=== PATIENT | female | born 1960 | race Caucasian/White ===

== ENCOUNTER 2020-05-01 09:31 | Outpatient (CLI) | payer BC, SELFPAY ==
--- NOTE | 2020-05-01 09:38 | MM_ITS ---
WS: [id number] Exam: [id number] Date/Time of Exam: 05/01/2020 9:51 AM Reason For Exam: SCREENING VIEWS: MLO and CC views both breasts. Comparison made with prior exam of 02/18/2017. Findings: There was no sign of mass, architectural distortion or suspicious calcification in either breast. Sca ttered fibroglandular densities noted bilaterally. Stable appearing scattered microcalcifications in the right breast. MM/[place] [id number] Impression: BI-RADS: 2-Benign FOLLOW-UP: 1 Year Follow-up This mammogram was also analyzed by the Computer Aided Detection System R2 Imag e Ecologist Technician.
== END 2020-05-01 09:32 | disposition home or self-care (01) ==
LOC: RADSHAW 09:35
PROVIDERS: PCP Family Medicine; Visit Provider Family Medicine
DX: Z12.31 Encounter for screening mammogram for malignant neoplasm of breast (principal)
CPT/HCPCS: 77067

== ENCOUNTER 2021-05-08 09:46 | Outpatient (CLI) | payer BC, SELFPAY ==
--- NOTE | 2021-05-08 09:49 | MM_ITS ---
WS: [id number] Bilateral screening digital mammogram, 05/08/2021 Clinical Data: SCREENING Comparison: 05/01/2020, 04/25/2019, 03/30/2018, 02/18/2017, 01/29/2016, 12/20/2014, 04/06/2013, 01/14/2011, 12/22/2009, 11/10/2006. Findings: The breast parenchymal pattern shows fibroglandular tissue. No spiculated masses or clustered calcif ications are seen. There are no secondary signs of carcinoma. There are lymph nodes in both axilla. MM/[place] [id number] Impression: 1. Negative bilateral mammogram unchanged. 2. Recommend annual screening mammograms. BIRADS: 1-Negative FOLLOW UP: 1 Year Follow-up The CAD fruit checker was used.
== END 2021-05-08 09:47 | disposition home or self-care (01) ==
LOC: RADSHAW 09:48
PROVIDERS: PCP Family Medicine; Visit Provider Family Medicine
DX: Z12.31 Encounter for screening mammogram for malignant neoplasm of breast (principal)
CPT/HCPCS: 77067

== ENCOUNTER 2022-05-21 14:09 | Outpatient (CLI) | payer BC, SELFPAY ==
--- NOTE | 2022-05-21 14:21 | MM_ITS ---
WS: [id number] BILATERAL SCREENING DIGITAL TOMOSYNTHESIS MAMMOGRAM WITH CAD HISTORY: SCREENING COMPARISON: 05/08/2021, 05/01/2020 Bilateral CC and MLO views with tomosynthesis and synthetic mammography submitted. Computer aided det ection analyzed. Breast composition: There are scattered areas of fibroglandular density. No suspicious masses, microc alcifications or architectural distortion. Benign calcifications in each breast. MM/[place] [id number] IMPRESSION: BI-RADS: 2-Benign FOLLOW UP: 1 Year Follow-up
== END 2022-05-21 14:10 | disposition home or self-care (01) ==
LOC: RAD 14:10
PROVIDERS: PCP Family Medicine; Visit Provider Family Medicine
DX: Z12.31 Encounter for screening mammogram for malignant neoplasm of breast (principal)
CPT/HCPCS: 77063; 77067

== ENCOUNTER 2022-10-08 11:13 | Emergency (ER) | payer BC, OTHER, SELFPAY ==
[2022-10-08 11:15] VITALS: BP 154/74; PULSE 59; RESP 16; TEMP 36.6; O2SAT 99
--- NOTE | 2022-10-08 11:19 | XR_ITS ---
WS: [id number] XR chest 1V portable [id number] REASON FOR EXAM: chest pain FINDINGS: Mild tortuosity and ectasia of the thoracic aorta. Normal heart size. Calcified granulomatous disease bilaterally. No active pulmonary parenchymal pleural disease. Moderate to significant degenerative spondylosis in the mid and lower thoracic spine. XR/XR chest 1V portable [id number] IMPRESSION: No acute chest abnormality.
--- NOTE | 2022-10-08 11:21 | ECG_ITS ---
[facility] Test Date: 2022-10-08 Pat Name: Luis Matamoros Department: Room: Gender: Female Precision Instrument And Tool Maker: : 1960 Requested By: Vin Cruz Order Number: [id number] Jennifer MD: Ciera Kumar M.D. Measurements Intervals Commodore Rate: 62 P: 46 FL: 153 QRS: 24 QRSD: 90 T: 31 QT: 397 QTc: 403 Interpretive Statements SINUS RHYTHM LOW QRS VOLTAGE IN PRECORDIAL LEADS [QRS DEFLECTION < 1.0 mV IN CHEST LEADS] No previous ECG available for comparison Electronically Signed On 10-08-2022 21:24:03 CDT by Ciera Kumar M.D. [id number]
[2022-10-08 11:30] VITALS: BP 120/88; PULSE 68; RESP 20; O2SAT 94
[2022-10-08 11:31] LABS: Basophils # 0.1 10^3/uL (0.0-0.1); Basophils % 0.5 %; Eosinophils # 0.3 10^3/uL (0.0-0.8); Eosinophils % 3.1 %; Hematocrit 45.3 % (37.0-47.0); Hemoglobin 15.2 g/dL (11.5-15.3); Lymphocytes % 32.3 %; Mean Corpuscular HGB Conc 33.6 g/dL (30.0-36.0); Mean Corpuscular Hemoglobin 29.3 pg (28.0-34.0); Mean Corpuscular Volume 87.5 fl (81-99); Mean Platelet Volume 11.9 fL (7.4-10.4); Monocytes # 0.9 10^3/uL (0.2-0.9); Monocytes % 9.6 %; Neutrophils # 5.01 10^3/uL (1.8-7.7); Neutrophils % 54.3 %; Nucleated Red Blood Cells % 0 %; Platelet Count 248 10^3/cmm (130-400); Red Blood Count 5.18 10^6/uL (4.1-5.3); Red Cell Distribution Width 12.7 % (12.1-15.1); White Blood Count 9.3 10^3/uL (4.0-10.0)
--- NOTE | 2022-10-08 11:46 | ED_ITS ---
HPI - Chest Pain General: Chief Complaint: Chest Pain Stated Complaint: chest pain Time Seen by Provider: 10/08/22 11:16 Source: patient Mode of arrival: ambulatory History of Present Illness: 52-year-old female presents to the emergency room with complaint of chest pain that began suddenly around 10:00 this morning while she was eating breakfast it lasted for 20 to 30 minutes she did take her aspirin and blood pressure medicines after it began. She not previously had episodes like it. She noticed that when she took a deep breath it reproduce the pain. All of those symptoms have completely resolved the time she presents here her initial EKG does not show any acute changes. She has no known history of diabetes mellitus she has no recent stress testing no recent cough cold illness. MD complaint: chest pain Onset (ago): minute(s) Timing of current episode: episodic Prior episodes: No Onset: during rest Pain location: left chest Pain radiation: none Quality: sharp Relieving factors: nothing Exacerbating factors: nothing Associated symptoms: Deny abdominal pain, diaphoresis, dyspnea, fever(s), leg edema, nausea, palpitations, sense of impending doom, syncope or vomiting Review of Systems Const: Denies: fever(s), chills, fatigue, malaise or diaphoresis ENMT: Denies: throat pain, ear or mastoid pain, nasal discharge or nasal congestion Card: Reports: chest pain; Denies: palpitations, irregular heart rhythm, edema, swelling of feet/ankles or syncope Resp: Denies: dyspnea GI: Denies: abdominal pain, nausea or vomiting : Denies: flank pain, difficulty voiding, dysuria, urinary frequency or urinary urgency Skin/Breast: Denies: rash or pruritus [facility] ED PFSH: Medical History (Updated 10/08/22 @ 13:35 by Vin Betancourt DO) Hyperlipidemia Hypertension Seasonal allergies Social History (Updated 10/08/22 @ 11:49 by Vin Betancourt DO) Smoking and tobacco status: never smoked Alcohol intake: never Physical Exam Const: GENERAL APPEARANCE: cooperative and comfortable ORIENTATION/CONSCIOUSNESS: Yes awake, Yes oriented to person, Yes oriented to place and Yes oriented to time HENMT: COMMON NORMALS: normocephalic, atraumatic and hearing grossly normal bilaterally HEAD & SCALP: normocephalic and atraumatic Resp: COMMON NORMALS: normal respiratory effort, No retractions, No use of accessory muscles and clear to auscultation bilaterally AUSCULTATION: clear to auscultation bilaterally Cardio: COMMON NORMALS: regular rate, regular rhythm and No murmurs present (Cardio) RATE: regular rate RHYTHM: regular rhythm GI: COMMON NORMALS: Soft to palpation and No hepatosplenomegaly present AUSCULTATION: Yes normoactive bowel sounds PALPATION: Yes Soft to palpation, No Tenderness to palpation present (GI), No Guarding due to palpation present (GI) and Yes No hepatosplenomegaly present Extremity: COMMON NORMALS: normal to inspection, capillary refill normal, no clubbing, cyanosis or edema, no calf tenderness and no pedal edema Neuro: SENSORIUM/ORIENTATION: Yes oriented to person, Yes oriented to place and Yes oriented to time Skin: COMMON NORMALS: no rashes or lesions noted GENERAL SKIN EXAM: no rashes or lesions noted Course Vital Signs: Vital signs: Vital Signs Temperature 97.9 F 10/08/22 11:15 Pulse Rate 78 10/08/22 13:44 Respiratory Rate 14 10/08/22 13:44 Blood Pressure 134/74 10/08/22 13:44 Pulse Oximetry 98 10/08/22 13:44 Oxygen Delivery Me thod 10/08/22 12:35 MDM - Chest Pain Medical Decision Making Labs and imaging reviewed. Labs imaging and EKG unremarkable no evidence of pneumonia clinically there is no suggestion of pulmonary embolism no widening of the mediastinum suggestive of thoracic aneurysm. Her symptoms do sound more GI in nature. I am going to have her start taking aspirin 81 mg daily discharge patient home set up for an outpatient Lexiscan sestamibi stress test return if she has further problems. Medical Records I reviewed the patient's medical records. Lab Data I reviewed the patient's lab results. 10/08/22 10:55 10/08/22 10:55 Radiology Impressions Chest X-Ray 10/08/22 11:19 IMPRESSION: No acute chest abnormality. Laboratory Results WBC 9.3 10^3/uL (4.0-10.0) 10/08/22 10:55 RBC 5.18 10^6/uL (4.1-5.3) 10/08/22 10:55 Hgb 15.2 g/dL (11.5-15.3) 10/08/22 10:55 Hct 45.3 % (37.0-47.0) 10/08/22 10:55 MCV 87.5 fl (81-99) 10/08/22 10:55 MCH 29.3 pg (28.0-34.0) 10/08/22 10:55 MCHC 33.6 g/dL (30.0-36.0) 10/08/22 10:55 RDW 12.7 % (12.1-15.1) 10/08/22 10:55 Plt Count 248 10^3/cmm (130-400) 10/08/22 10:55 MPV 11.9 fL (7.4-10.4) H 10/08/22 10:55 Neut % (Auto) 54.3 % 10/08/22 10:55 Lymph % (Auto) 32.3 % 10/08/22 10:55 [place] % (Auto) 9.6 % 10/08/22 10:55 Eos % (Auto) 3.1 % 10/08/22 10:55 Baso % (Auto) 0.5 % 10/08/22 10:55 Neut # (Auto) 5.01 10^3/uL (1.8-7.7) 10/08/22 10:55 Lymph # (Auto) 3.0 10^3/uL (0.8-4.8) 10/08/22 10:55 [place] # (Auto) 0.9 10^3/uL (0.2-0.9) 10/08/22 10:55 Eos # (Auto) 0.3 10^3/uL (0.0-0.8) 10/08/22 10:55 Baso # (Auto) 0.1 10^3/uL (0.0-0.1) 10/08/22 10:55 Nucleated RBC % (auto) 0 % 10/08/22 10:55 Nucleated RBCs # 0.0 /100WBC 10/08/22 10:55 Sodium 141 mmol/L (136-145) 10/08/22 10:55 Potassium 3.8 mmol/L (3.5-5.1) 10/08/22 10:55 Chloride 103 mmol/L (98-107) 10/08/22 10:55 Carbon Dioxide 26 mmol/L (22-29) 10/08/22 10:55 Anion Gap 15.8 (5-19) 10/08/22 10:55 BUN 11 mg/dL (8-23) 10/08/22 10:55 Creatinine 0.6 mg/dL (0.5-0.9) 10/08/22 10:55 GFR Calculation 101.0 mL/min (90-130) 10/08/22 10:55 Glucose 104 mg/dL (65-115) 10/08/22 10:55 Calculated Osmolality 292 mOsm/kg (285-295) 10/08/22 10:55 Calcium 9.4 mg/dL (8.5-10.5) 10/08/22 10:55 Total Bilirubin 0.7 mg/dL (0.15-1.2) 10/08/22 10:55 AST 27 U/L (0-32) 10/08/22 10:55 ALT 30 U/L (0-33) 10/08/22 10:55 Alkaline Phosphatase 90 U/L (35-105) 10/08/22 10:55 Troponin T Baseline 9 ng/L (0-10) 10/08/22 10:55 Troponin T 120 Minute 10.58 ng/L (0-10) H 10/08/22 12:39 Delta Troponin T 1.58 ABS# (0-10) 10/08/22 12:39 Total Protein 7.1 g/dL (6.6-8.7) 10/08/22 10:55 Albumin 4.2 g/dL (3.5-5.2) 10/08/22 10:55 Globulin 2.9 g/dL (1.3-4.6) 10/08/22 10:55 Discharge Plan Discharge Patient Disposition: Home Clinical Impression: Atypical chest pain Prescriptions: New aspirin 81 mg tablet,delayed release (DR/EC) 81 mg PO DAILY Qty: 30 0RF No Action Zyrtec 10 mg capsule 10 mg PO DAILY PRN (Reason: Allergy Symptoms) fluticasone propionate 50 mcg/actuation spray,suspension 1 spray intranasal DAILY PRN (Reason: Allergic Symptoms) Rx Instructions: administer into each nostril atorvastatin 20 mg tablet 20 mg PO BEDTIME lisinopril-hydrochlorothiazide 20-12.5 mg tablet 1 tab PO DAILY omeprazole 20 mg Capsule,Delayed Release(Dr/Ec) 20 mg PO DAILY Discharge Orders: Discharge ED (Routine); Ordered 10/08/22 Ordered By: Vin Betancourt Referrals: Soraya Richards MD [Primary Care Provider] - Discharge Diet: Usual diet Discharge Activity: Increase activity as tolerated Patient Instructions: Opioid Safety, Pain Management Activity Restrictions/Additional Instructions: You are seen today for chest pain. Your cardiac enzymes EKG were normal. Recommend take baby aspirin daily Case management make arrangements for an outpatient Lexiscan sestamibi stress test Coding Level of Care Code ED Telegraphic Service Dispatcher for Chg Tristan
[2022-10-08 11:51] LABS: Troponin(5th) Baseline 9 ng/L (0-10)
[2022-10-08 11:52] LABS: Alanine Aminotransferase 30 U/L (0-33); Albumin Level 4.2 g/dL (3.5-5.2); Alkaline Phosphatase 90 U/L (35-105); Anion Gap 15.8 (5-19); Aspartate Amino Transferase 27 U/L (0-32); Blood Urea Nitrogen 11 mg/dL (8-23); Calcium 9.4 mg/dL (8.5-10.5); Carbon Dioxide 26 mmol/L (22-29); Chloride 103 mmol/L (98-107); Globulin 2.9 g/dL (1.3-4.6); Glucose 104 mg/dL (65-115); Osmolality Calculated 292 mOsm/kg (285-295); Potassium 3.8 mmol/L (3.5-5.1); Sodium 141 mmol/L (136-145); Total Bilirubin 0.7 mg/dL (0.15-1.2); Total Protein 7.1 g/dL (6.6-8.7)
[2022-10-08 12:35] VITALS: BP 134/76; PULSE 57; RESP 16; O2SAT 98
[2022-10-08 13:03] LABS: Troponin 5 2HR 10.58 ng/L (0-10)
[2022-10-08 13:07] LABS: Troponin 5 2HR Delta 1.58 ABS# (0-10)
[2022-10-08 13:44] VITALS: BP 134/74; PULSE 78; RESP 14; O2SAT 98
--- NOTE | 2022-10-11 15:12 | DCPLANNER ---
Addendum entered by Zonia Solares 10/14/22 08:08: manager studio received the following message from centralized scheduling regarding follow up appointment: Pt Luis Matamoros was denied for the stress test Order Request Summary Health Plan: Laurie SOTO? Scheduled Date of Service: 10/13/2022 [facility] #: [id number] Order ID:?[id number]?Non-Authorized Original Note: manager studio had message to schedule an outpatient stress test for patient. manager studio faxed signed order to centralized scheduling, who will call patient with appointment information.
== END 2022-10-08 13:46 | disposition home or self-care (01) ==
PROVIDERS: Emergency Provider Family Medicine; PCP Family Medicine
DX: R07.89 Other chest pain (principal); I10 Essential (primary) hypertension; E78.5 Hyperlipidemia, unspecified
CPT/HCPCS: 71045; 80053; 84484; 85025; 93005; 99285

== ENCOUNTER 2023-06-02 10:03 | Outpatient (CLI) | payer BC, OTHER, SELFPAY ==
--- NOTE | 2023-06-02 10:08 | MM_ITS ---
WS: [id number] Bilateral screening 3D tomosynthesis digital mammogram, 06/02/2023 Clinical Data: SCREENING Comparison: 05/21/2022, 05/08/2021, 05/01/2020, 04/25/2019, 03/30/2018, 02/18/2017, 01/29/2016, 12/20/2014 , 04/06/2013, 01/14/2011, 12/22/2009, 11/10/2006. Findings: The breast parenchymal pattern shows fibroglandular tissue. No spiculated masses or clustered calcifi cations are seen. There are no secondary signs of carcinoma. Impression: 1. Negative bilateral mammogram unchanged. 2. Recommend annual screening mammograms. MM/[place] [id number] BIRADS: 1-Negative FOLLOW UP: 1 Year Follow-up The CAD dead mail checker was used.
== END 2023-06-02 10:04 | disposition home or self-care (01) ==
LOC: RAD 10:03
PROVIDERS: PCP Family Medicine; Visit Provider Family Medicine
DX: Z12.31 Encounter for screening mammogram for malignant neoplasm of breast (principal)
CPT/HCPCS: 77063; 77067

== ENCOUNTER 2024-06-19 07:58 | Outpatient (CLI) | payer MEDICARE, OTHER, SELFPAY ==
--- NOTE | 2024-06-19 08:06 | MM_ITS ---
WS: [id number] Bilateral screening 3D tomosynthesis digital mammogram, 06/19/2024 8:07 AM Clinical Data: SCREENING Comparison: 06/02/2023, 05/21/2022, 05/08/2021, 05/01/2020, 04/25/2019, 03/30/2018, 02/18/2017, 6, 12/20/2014, 04/06/2013, 01/14/2011, 12/22/2009, 11/10/2006. Findings: No spiculated masses or clustered calcifications are seen. There are no secondary signs of carcinoma . MM/MM scr BI tomosynthesis [id number] Impression: Negative bilateral mammogram unchanged. Recommend annual screening mammograms. BIRADS: 1 - Negative. FOLLOW UP: 1 Year Follow-up DENSITY: There are scattered areas of fibroglandular density. The CAD mechanical car checker was used
== END 2024-06-19 07:59 | disposition home or self-care (01) ==
PROVIDERS: PCP Family Medicine; Visit Provider Family Medicine
DX: Z12.31 Encounter for screening mammogram for malignant neoplasm of breast (principal)
CPT/HCPCS: 77063; 77067

== ENCOUNTER → 2024-08-14 07:49 | Outpatient (BNVA) | payer MEDICARE, OTHER, SELFPAY | PROVIDERS: PCP Family Medicine; Referring Provider Family Medicine; Visit Provider Dermatology | DX: L82.1 Other seborrheic keratosis (principal); L73.8 Other specified follicular disorders; C44.219 Basal cell carcinoma of skin of left ear and external auricular canal; L82.0 Inflamed seborrheic keratosis; L29.89 Other pruritus; L53.8 Other specified erythematous conditions; R20.8 Other disturbances of skin sensation; D48.5 Neoplasm of uncertain behavior of skin; L57.0 Actinic keratosis | CPT/HCPCS: 11102; 17000; 17110; 17311; 99203 ==

== ENCOUNTER → 2024-09-05 10:52 | Outpatient (BNVA) | payer MEDICARE, OTHER, SELFPAY | PROVIDERS: PCP Family Medicine; Visit Provider Dermatology | DX: D23.72 Other benign neoplasm of skin of left lower limb, including hip (principal); L90.5 Scar conditions and fibrosis of skin; Z08 Encounter for follow-up examination after completed treatment for malignant neoplasm; Z85.828 Personal history of other malignant neoplasm of skin; L82.0 Inflamed seborrheic keratosis; R20.8 Other disturbances of skin sensation; L53.8 Other specified erythematous conditions; L29.89 Other pruritus; D48.5 Neoplasm of uncertain behavior of skin | CPT/HCPCS: 11102; 17110; 99213 ==

== ENCOUNTER → 2025-03-12 14:03 | Outpatient (BNVA) | payer MEDICARE, OTHER, SELFPAY | PROVIDERS: PCP Family Medicine; Visit Provider Nurse Practitioner Family | DX: D23.72 Other benign neoplasm of skin of left lower limb, including hip (principal); L90.5 Scar conditions and fibrosis of skin; L81.4 Other melanin hyperpigmentation; L57.8 Other skin changes due to chronic exposure to nonionizing radiation; L82.1 Other seborrheic keratosis; Z08 Encounter for follow-up examination after completed treatment for malignant neoplasm; Z85.828 Personal history of other malignant neoplasm of skin; L82.0 Inflamed seborrheic keratosis; Z78.9 Other specified health status; R58 Hemorrhage, not elsewhere classified; R20.8 Other disturbances of skin sensation; L53.8 Other specified erythematous conditions | CPT/HCPCS: 17110; 99213 ==